=== PATIENT | female | born 1990 | race Caucasian/White ===

== ENCOUNTER 2020-12-30 12:01 | Observation (INO) | payer OTHER ==
[2020-12-30] MEDS ORDERED: SODIUM CHLORIDE 0.9% 1,000 ML IV STA (13:06)
[2020-12-30] MEDS ORDERED: KETOROLAC 15 MG/ML 1 ML VIAL IVP STA (13:06)
[2020-12-30 14:09] LABS: Basophils % (A) 0 %; Eosinophils % (A) 0 %; HCT 43.7 % (34.0-46.0); HGB 15.5 gm/dL (11.4-16.0); Lymphocytes # (A) 1.5 k/uL (1.0-4.8); Lymphocytes % (A) 11 %; MCH 30.6 pg (25.0-35.0); MCHC 35.4 g/dL (31.0-37.0); MCV 86.3 fL (80.0-100.0); Mean Platelet Volume 9.5; Monocytes # (A) 0.7 k/uL (0-1.0); Monocytes % (A) 5 %; Neutrophils % (A) 82 %; Platelet Count 209 k/uL (150-450); RBC 5.06 m/uL (3.80-5.40); RDW 12.4 % (11.5-15.5); WBC 13.4 k/uL (3.8-10.6)
[2020-12-30 14:16] LABS: Appearance,Urine Cloudy (Clear); Bacteria,Urine Occasional /hpf; Bilirubin,Urine 1+ (Negative); Blood,Urine Negative (Negative); Color,Urine Yellow; Glucose,Urine (UA) Negative (Negative); Ketones,Urine 1+ (Negative); Leukocyte Esterase,Urine Small (Negative); Mucus,Urine Many /hpf; Nitrite,Urine Negative (Negative); Protein,Urine 1+ (Negative); RBC,Urine 2 /hpf (0-5); Specific Gravity,Urine 1.031 (1.001-1.035); Squamous Epithelial Cell,Urine 31 /hpf (0-4); WBC,Urine 13 /hpf (0-5)
--- NOTE | 2020-12-30 14:23 | CT ---
EXAMINATION TYPE: CT abdomen pelvis w con DATE OF EXAM: 12/30/2020 COMPARISON: None INDICATION: Pelvic pain with nausea and diarrhea DLP: 2108.1 mGycm, Automated exposure control for dose reduction was used. CONTRAST: 100 mL of Isovue 300. Study performed without Oral Contrast TECHNIQUE: Axial images were obtained from above the diaphragm to the pubic rami in the axial plane a t 5 mm thick sections. Reconstructed images are reviewed on the computer in the coronal plane. FINDINGS: Limited CT sections are obtained the lung bases. The lung bases are clear. CT ABDOMEN: Liver: Normal Spleen: Normal Pancreas: Normal Adrenal glands: The adrenal glands are normal. Gallbladder: Normal Kidneys: No masses are evident. No hydronephrosis is present. No cysts are present. Delayed images were obtained through the kidneys, which remain unremarkable. Aorta: Normal Inferior vena cava: Normal. CT PELVIS: Fluid-filled small bowel loops and fluid filled colon is evident. Findings can be compatible with gas troenteritis. Ileus is considered within the differential. No suspicious changes for obstruction are evident. Follow up exams can be performed as clinically indicated. This study is performed without or al contrast. Appendix: Appendix dilatation is not identified. However, this right lower quadrant area has increase d inflammatory changes surrounding the appendix. Clinical correlation for early appendicitis is recom mended. Report was called to Dr. Cuevas by Dr. Lockhart by telephone 1420 hours 12/30/2020. The case wa s discussed. Urinary bladder: Decompressed with limited evaluation Genitourinary structures: Uterus appears normal. Adnexal regions are clear. Osseous structures: No suspicious lytic or sclerotic lesions. IMPRESSIONS: 1. Inflammatory changes surrounding the nondilated appendix. Correlate for early appendicitis. 2. Fluid-filled small bowel loops and colon. Correlate for gastroenteritis. Ileus could be considered .
[2020-12-30 14:27] LABS: ALT 22 U/L (4-34); AST 21 U/L (14-36); African American GFR (CKD) >90 (>60 ml/min/1.73 sqM); Albumin 4.3 g/dL (3.5-5.0); Alkaline Phosphatase 87 U/L (38-126); Anion Gap 9 mmol/L; Blood Urea Nitrogen 9 mg/dL (7-17); Calcium 9.4 mg/dL (8.4-10.2); Carbon Dioxide 23 mmol/L (22-30); Chloride 105 mmol/L (98-107); Glucose 96 mg/dL (74-99); Lipase 64 U/L (23-300); Non-African American GFR(CKD) >90 (>60 ml/min/1.73 sqM); Potassium 3.9 mmol/L (3.5-5.1); Sodium 137 mmol/L (137-145); Total Bilirubin 1.2 mg/dL (0.2-1.3); Total Protein 7.4 g/dL (6.3-8.2)
--- NOTE | 2020-12-30 14:29 | ED ---
Abdominal Pain HPI - General Chief Complaint: Abdominal Pain Stated Complaint: poss appendicitis Time Seen by Provider: 12/30/20 12:45 Source: patient Mode of arrival: ambulatory Limitations: no limitations - History of Present Illness Initial Comments: Patient is a 30-year-old female presenting to the emergency department from her PCPs office for right lower quadrant pain. Patient states she started having some mid abdominal pain a few days ago but states she does get this occasionally. Patient states last night the pain started to get worse and moved the lower and towards her right side. Patient states his pain is very sharp in nature, consistent and different than her normal abdominal pains. She denies any history of abdominal surgeries. She's been having normal bowel movements. She denies any fever or chills. She did see her PCP earlier today, urine was normal, no . She denies any chest pain or shortness of breath. She does admit to some nausea but no vomiting. She has no further complaints at this time. Upon arrival to the ER, she has tachycardia at 114, rest of vitals are normal. - Related Data Home Medications Medication Instructions Recorded Confirmed Bismuth Subsalicylate 524 mg PO Q4H PRN 12/30/20 12/30/20 [Pepto-Bismol] Allergies Allergy/AdvReac Type Severity Reaction Status Date / Time No Known Allergies Allergy Verified 12/30/20 13:48 Review of Systems ROS Statement: Those systems with pertinent positive or pertinent negative responses have been documented in the HPI. ROS Other: All systems not noted in ROS Statement are negative. Past Medical History Past Medical History: No Reported History Past Surgical History: No Surgical Hx Reported Smoking Status: Vaper Past Alcohol Use History: Occasional Past Drug Use History: None Reported General Exam - General Exam Comments Initial Comments: GENERAL: Patient is well-developed and well-nourished. Patient is nontoxic and in mild distress. HEAD: Atraumatic, normocephalic. EYES: Pupils equal round and reactive to light, extraocular movements intact, sclera anicteric, conjunctiva are normal. Eyelids were unremarkable. ENT: TMs normal, nares patent, oropharynx clear without exudates. Moist mucous membranes. NECK: Normal range of motion, supple without lymphadenopathy or JVD. LUNGS: Unlabored respirations. Breath sounds clear to auscultation bilaterally and equal. No wheezes rales or rhonchi. HEART: Regular rate and rhythm without murmurs, rubs or gallops. ABDOMEN: Soft, tender to palpation of the suprapubic, right lower quadrant, there is rebound tenderness and guarding present. normoactive bowel sounds. No masses appreciated. : Deferred MUSCULOSKELETAL: Normal extremities with adequate strength and normal range of motion, no pitting or edema. No clubbing or cyanosis. NEUROLOGICAL: Patient is alert and oriented x 3. Motor and sensory are also intact. Cranial nerves II through XII grossly intact. Symmetrical smile. Normal speech, normal gait. PSYCH: Normal mood, normal affect. SKIN: Warm, Dry, normal turgor, no rashes or lesions noted. Limitations: no limitations Course Vital Signs 12/30/20 12/30/20 12:14 14:46 Temperature 98.3 F Pulse Rate 114 H 103 H Respiratory 18 18 Rate Blood Pressure 119/81 132/86 O2 Sat by Pulse 98 Oximetry Medical Decision Making - Medical Decision Making Patient is a 30-year-old female here for right lower quadrant pain has been increasing over the past 2 days. Patient did see her PCP today who sent her in the ER to rule out appendicitis possibly ovarian cyst. Urine test today at his doctor's office was negative. No fevers, she did arrive subtly ta chycardia. It is fairly tender in the right lower quadrant, positive guarding. Recent labs showed a white count of 13.4, normal hemoglobin. Lactic acid is normal at 1.1, urine has 1+ ketones, little bit of bacteria but many's, cells. Urine hCG is not detected. CT of the abdomen and pelvis shows inflammatory changes around the nondilated appendix, concerning for early appendicitis. There are some fluid-filled small bowel loops of bowel, could be related to an ileus secondary to the appendicitis. She received Toradol, IV fluids, she has been resting comfortably. Patient has not had anything to eat since yesterday, she takes a few sips of water earlier this morning. Patient will be admitted for appendicitis. I did speak with Dr. Thomas and he did accept patient. We will start patient on Zosyn. He is discussed with Dr. Auguste. - Lab Data Result diagrams: 12/30/20 13:25 12/30/20 13:25 Lab Results 12/30/20 12/30/20 12/30/20 Range/Units 13:25 13:25 13:25 WBC 13.4 H (3.8-10.6) k/uL RBC 5.06 (3.80-5.40) m/uL Hgb 15.5 (11.4-16.0) gm/dL Hct 43.7 (34.0-46.0) % MCV 86.3 (80.0-100.0) fL MCH 30.6 (25.0-35.0) pg MCHC 35.4 (31.0-37.0) g/dL RDW 12.4 (11.5-15.5) % Plt Count 209 (150-450) k/uL MPV 9.5 Neutrophils % 82 % Lymphocytes % 11 % Monocytes % 5 % Eosinophils % 0 % Basophils % 0 % Neutrophils # 11.0 H (1.3-7.7) k/uL Lymphocytes # 1.5 (1.0-4.8) k/uL Monocytes # 0.7 (0-1.0) k/uL Eosinophils # 0.0 (0-0.7) k/uL Basophils # 0.0 (0-0.2) k/uL Sodium (137-145) mmol/L Potassium (3.5-5.1) mmol/L Chloride (98-107) mmol/L Carbon Dioxide (22-30) mmol/L Anion Gap mmol/L BUN (7-17) mg/dL Creatinine (0.52-1.04) mg/dL Est GFR (CKD-EPI)AfAm (>60 ml/min/1.73 sqM) Est GFR (CKD-EPI)NonAf (>60 ml/min/1.73 sqM) Glucose (74-99) mg/dL Plasma Lactic Acid Osvaldo (0.7-2.0) mmol/L Calcium (8.4-10.2) mg/dL Total Bilirubin (0.2-1.3) mg/dL AST (14-36) U/L ALT (4-34) U/L Alkaline Phosphatase (38-126) U/L Total Protein (6.3-8.2) g/dL Albumin (3.5-5.0) g/dL Lipase (23-300) U/L Urine Color Yellow Urine Appearance Cloudy H (Clear) Urine pH 6.0 (5.0-8.0) Ur Specific [place] 1.031 (1.001-1.035) Urine Protein 1+ H (Negative) Urine Glucose (UA) Negative (Negative) Urine Ketones 1+ H (Negative) Urine Blood Negative (Negative) Urine Nitrite Negative (Negative) Urine Bilirubin 1+ H (Negative) Urine Urobilinogen 2.0 (<2.0) mg/dL Ur Leukocyte Esterase Small H (Negative) Urine RBC 2 (0-5) /hpf Urine WBC 13 H (0-5) /hpf Ur Squamous Epith Cells 31 H (0-4) /hpf Urine Bacteria Occasional H (None) /hpf Urine Mucus Many H (None) /hpf Urine HCG, Qual Not Detected (Not Detectd) 12/30/20 12/30/20 Range/Units 13:25 13:25 WBC (3.8-10.6) k/uL RBC (3.80-5.40) m/uL Hgb (11.4-16.0) gm/dL Hct (34.0-46.0) % MCV (80.0-100.0) fL MCH (25.0-35.0) pg MCHC (31.0-37.0) g/dL RDW (11.5-15.5) % Plt Count (150-450) k/uL MPV Neutrophils % % Lymphocytes % % Monocytes % % Eosinophils % % Basophils % % Neutrophils # (1.3-7.7) k/uL Lymphocytes # (1.0-4.8) k/uL Monocytes # (0-1.0) k/uL Eosinophils # (0-0.7) k/uL Basophils # (0-0.2) k/uL Sodium 137 (137-145) mmol/L Potassium 3.9 (3.5-5.1) mmol/L Chloride 105 (98-107) mmol/L Carbon Dioxide 23 (22-30) mmol/L Anion Gap 9 mmol/L BUN 9 (7-17) mg/dL Creatinine 0.74 (0.52-1.04) mg/dL Est GFR (CKD-EPI)AfAm >90 (>60 ml/min/1.73 sqM) Est GFR (CKD-EPI)NonAf >90 (>60 ml/min/1.73 sqM) Glucose 96 (74-99) mg/dL Plasma Lactic Acid Osvaldo 1.1 (0.7-2.0) mmol/L Calcium 9.4 (8.4-10.2) mg/dL Total Bilirubin 1.2 (0.2-1.3) mg/dL AST 21 (14-36) U/L ALT 22 (4-34) U/L Alkaline Phosphatase 87 (38-126) U/L Total Protein 7.4 (6.3-8.2) g/dL Albumin 4.3 (3.5-5.0) g/dL Lipase 64 (23-300) U/L Urine Color Urine Appearance (Clear) Urine pH (5.0-8.0) Ur Specific [place] (1.001-1.035) Urine Protein (Negative) Urine Glucose (UA) (Negative) Urine Ketones (Negative) Urine Blood (Negative) Urine Nitrite (Negative) Urine Bilirubin (Negative) Urine Urobilinogen (<2.0) mg/dL Ur Leukocyte Esterase (Negative) Urine RBC (0-5) /hpf Urine WBC (0-5) /hpf Ur Squamous Epith Cells (0-4) /hpf Urine Bacteria (None) /hpf Urine Mucus (None) /hpf Urine HCG, Qual (Not Detectd) Disposition Clinical Impression: Acute appendicitis Disposition: ADMITTED IP TO THIS [facility] Condition: Stable Is patient prescribed a controlled substance at d/c from ED?: No Referrals: Rigo Barnhart MD [Primary Care Provider] - 1-2 days Decision Date: 12/30/20 Decision Time: 14:58
[2020-12-30] MEDS ORDERED: PIPERACILLIN-TAZOBACTAM 3.375 GM in SODIUM CHLORIDE 0.9% 100 ML IVPB STA (14:53)
[2020-12-30] MEDS ORDERED: NALOXONE 0.4 MG/ML 1 ML VIAL IV PRN (14:58)
[2020-12-30] MEDS ORDERED: MORPHINE SULFATE 4 MG/ML SYRINGE IV PRN (14:58)
[2020-12-30] MEDS ORDERED: KETOROLAC 15 MG/ML 1 ML VIAL IVP PRN (14:58)
[2020-12-30] MEDS ORDERED: ONDANSETRON 4 MG/2 ML VIAL IVP PRN (14:58)
[2020-12-30] MEDS: SODIUM CHLORIDE 0.9% 1,000 ML IV SCH (15:10)
[2020-12-30] MEDS ORDERED: ROCURONIUM 10 MG/ML (5 ML VIAL) IV ONE (18:50)
[2020-12-30] MEDS ORDERED: GLYCOPYRROLATE 0.2 MG/ML 2 ML VIAL ONE (18:50)
[2020-12-30] MEDS ORDERED: DEXAMETHASONE SOD PHOSPHATE 10 MG/ML 1 ML VIAL ONE (18:50)
[2020-12-30] MEDS ORDERED: MIDAZOLAM 2 MG/2 ML VIAL ONE (18:50)
[2020-12-30] MEDS ORDERED: HYDROmorphone (PF) 1 MG/ML ONE (18:50)
[2020-12-30] MEDS ORDERED: LIDOCAINE 1% INJ 10MG/ML (20 ML MDV) ONE (18:50)
[2020-12-30] MEDS ORDERED: SUCCINYLCHOLINE CHLORIDE 100 MG/5 ML SYR IV ONE (18:50)
[2020-12-30] MEDS ORDERED: fentaNYL (PF) 50 MCG/ML 2 ML AMP ONE (18:50)
[2020-12-30] MEDS ORDERED: PROPOFOL 10 MG/ML 20 ML VIAL IV ONE (18:50)
[2020-12-30] MEDS ORDERED: ONDANSETRON 4 MG/2 ML VIAL ONE (18:50)
[2020-12-30] MEDS ORDERED: NEOSTIGMINE 1 MG/ML 10 ML VIAL ONE (18:50)
[2020-12-30] MEDS ORDERED: HEPARIN SODIUM,PORCINE 5,000 UNIT/ML 1 ML VIAL SQ STA (18:54)
[2020-12-30] MEDS ORDERED: IV FLUID CONTINUATION 1,000 ML IV ONE (18:54)
--- NOTE | 2020-12-30 18:54 | P.GSHP ---
History of Present Illness H&P Date: 12/30/20 30-year-old female presents to the emergency department with complaints of abdominal pain that started approximately 1 day ago. She states that the pain was initially periumbilical and then migrated to the right lower quadrant. She also complains of nausea and lack of appetite. She mentions that she did have some loose stool today with no bowel movements yesterday. She denies any fevers, chills, chest pain or shortness of breath. On workup, patient was found to have a mild leukocytosis. CT of the abdomen and pelvis was performed that was concerning for appendicitis. She denies having pain like this previously. She denies any previous surgical history. - Review of Systems All systems: negative Past Medical History Past Medical History: No Reported History Past Surgical History: No Surgical Hx Reported Smoking Status: Vaper Past Alcohol Use History: Occasional Past Drug Use History: None Reported Medications and Allergies Home Medications Medication Instructions Recorded Confirmed Type Bismuth Subsalicylate 524 mg PO Q4H PRN 12/30/20 12/30/20 History [Pepto-Bismol] Allergies Allergy/AdvReac Type Severity Reaction Status Date / Time No Known Allergies Allergy Verified 12/30/20 13:48 Surgical - Exam Osteopathic Statement: *. No significant issues noted on an osteopathic structural exam other than those noted in the History and Physical/Consult. Vital Signs Temp Pulse Resp BP 98.3 F 114 H 18 119/81 12/30/20 12:14 12/30/20 12:14 12/30/20 12:14 12/30/20 12:14 - General well nourished, no distress - Eyes PERRL - ENT no hearing loss - Neck trachea midline - Respiratory normal respiratory effort - Abdomen Soft, tender to palpation in right lower quadrant, nondistended, no rebound, no guarding - Psychiatric oriented to time, oriented to person, oriented to place Results - Labs 12/30/20 13:25 12/30/20 13:25 Abnormal Lab Results - Last 24 Hours (Table) 12/30/20 12/30/20 Range/Units 13:25 13:25 WBC 13.4 H (3.8-10.6) k/uL Neutrophils # 11.0 H (1.3-7.7) k/uL Urine Appearance Cloudy H (Clear) Urine Protein 1+ H (Negative) Urine Ketones 1+ H (Negative) Urine Bilirubin 1+ H (Negative) Ur Leukocyte Esterase Small H (Negative) Urine WBC 13 H (0-5) /hpf Ur Squamous Epith Cells 31 H (0-4) /hpf Urine Bacteria Occasional H (None) /hpf Urine Mucus Many H (None) /hpf Diabetes panel 12/30/20 Range/Units 13:25 Sodium 137 (137-145) mmol/L Potassium 3.9 (3.5-5.1) mmol/L Chloride 105 (98-107) mmol/L Carbon Dioxide 23 (22-30) mmol/L BUN 9 (7-17) mg/dL Creatinine 0.74 (0.52-1.04) mg/dL Glucose 96 (74-99) mg/dL Calcium 9.4 (8.4-10.2) mg/dL AST 21 (14-36) U/L ALT 22 (4-34) U/L Alkaline Phosphatase 87 (38-126) U/L Total Protein 7.4 (6.3-8.2) g/dL Albumin 4.3 (3.5-5.0) g/dL Calcium panel 12/30/20 Range/Units 13:25 Calcium 9.4 (8.4-10.2) mg/dL Albumin 4.3 (3.5-5.0) g/dL Pituitary panel 12/30/20 Range/Units 13:25 Sodium 137 (137-145) mmol/L Potassium 3.9 (3.5-5.1) mmol/L Chloride 105 (98-107) mmol/L Carbon Dioxide 23 (22-30) mmol/L BUN 9 (7-17) mg/dL Creatinine 0.74 (0.52-1.04) mg/dL Glucose 96 (74-99) mg/dL Calcium 9.4 (8.4-10.2) mg/dL Adrenal panel 12/30/20 Range/Units 13:25 Sodium 137 (137-145) mmol/L Potassium 3.9 (3.5-5.1) mmol/L Chloride 105 (98-107) mmol/L Carbon Dioxide 23 (22-30) mmol/L BUN 9 (7-17) mg/dL Creatinine 0.74 (0.52-1.04) mg/dL Glucose 96 (74-99) mg/dL Calcium 9.4 (8.4-10.2) mg/dL Total Bilirubin 1.2 (0.2-1.3) mg/dL AST 21 (14-36) U/L ALT 22 (4-34) U/L Alkaline Phosphatase 87 (38-126) U/L Total Protein 7.4 (6.3-8.2) g/dL Albumin 4.3 (3.5-5.0) g/dL - Imaging CT scan - abdomen: report reviewed, image reviewed CT scan - pelvis: report reviewed, image reviewed Assessment and Plan Plan: 30-year-old female with acute appendicitis. Plan is for laparoscopic appendectomy, possible open. Patient was given IV antibiotics in the emergency department. Further recommendations are to be made after the procedure. She will receive preoperative VT prophylaxis.
[2020-12-30] MEDS ORDERED: BUPIVACAIN-EPI 0.5%-1:200,000 30 ML VIAL SQ ONE ×2 (19:16→19:41)
[2020-12-30] MEDS ORDERED: MORPHINE SULFATE 2 MG/ML SYRINGE IV PRN (19:50)
[2020-12-30] MEDS ORDERED: HYDROcodone/APAP 5-325MG 1 EACH TAB PO PRN (19:51)
--- NOTE | 2020-12-30 19:55 | P.OP ---
Date of Procedure: 12/30/20 Preoperative Diagnosis: Acute appendicitis Postoperative Diagnosis: Acute appendicitis Procedure(s) Performed: Laparoscopic appendectomy Anesthesia: ARLET Surgeon: Andrés Thomas Pathology: other (Appendix) Condition: stable Disposition: floor Indications for Procedure: 30-year-old female presents to the emergency department with complaints of abdominal pain. On workup, she was found to have acute appendicitis. Secondary to this, vision was started on IV antibiotics with plan for laparoscopic appen dectomy. Risks, benefits and alternatives were provided to the patient. She did provide consent prior to attending the operating suite. Operative Findings: Edematous and inflamed appendix with purulent exudates noted Description of Procedure: The patient was brought to the operating suite and placed in supine position on the operating table. Sedation was provided by anesthesia patient underwent endotracheal intubation. Patient was then prepped and draped in regular sterile fashion. Infraumbilical incision was made and dissection was carried to the fascia. The fascia was incised and a 12 mm port was placed. Pneumoperitoneum was then achieved. 2 additional 5 mm ports were then placed. One was placed in the suprapubic region and the other was placed in left lower quadrant. The patient was then positioned appropriately. The small bowel was noted to be adhered to the cecum and was grasped and retracted towards the left side of the abdomen. Immediate thrill and exudate was noted and the appendix was clearly visualized. The appendix was then peeled from the small bowel and mesentery. On examination, the base of the appendix was clearly visualized. A window was then created between the appendix and the mesoappendix. LigaSure device was used to dissect the appendix from the mesoappendix area hemostasis was maintained. Once the base of the appendix was cleared, a stapler device was used to resect the appendix at the base. The appendix was then placed in an Endo Catch bag and removed from the abdomen. Copious muss irrigation was then placed in the right lower quadrant and suctioned. The pelvis was also suctioned as it did contain some turbid fluid. The staple line was examined with no evidence of further bleeding. The 12 mm port site was then closed under direct visualization using an 0 Vicryl suture and a Andrea-Lexx device. Pneumoperitoneum was then released. All ports removed from the abdomen. All skin incisions were closed with 4-0 Vicryl subcuticular suture. The patient was awakened in the operating suite and taken to post anesthesia care unit in stable condition.
[2020-12-31] MEDS: HEPARIN SODIUM,PORCINE 5,000 UNIT/ML 1 ML VIAL SQ SCH ×2 (00:23→15:12)
[2020-12-31] MEDS: PIPERACILLIN-TAZOBACTAM 3.375 GM in SODIUM CHLORIDE 0.9% 100 ML IVPB SCH ×2 (00:23→07:56)
[2020-12-31] MEDS: KETOROLAC 15 MG/ML 1 ML VIAL IVP SCH ×3 (00:24→12:03)
[2020-12-31] MEDS: SODIUM CHLORIDE 0.9% 1,000 ML IV SCH (06:06)
[2020-12-31 07:12] LABS: Basophils % (A) 0 %; Eosinophils % (A) 0 %; HCT 42.1 % (34.0-46.0); HGB 14.3 gm/dL (11.4-16.0); Lymphocytes # (A) 0.7 k/uL (1.0-4.8); Lymphocytes % (A) 7 %; MCH 29.9 pg (25.0-35.0); MCV 87.9 fL (80.0-100.0); Mean Platelet Volume 9.3; Monocytes # (A) 0.3 k/uL (0-1.0); Monocytes % (A) 4 %; Neutrophils # (A) 8.3 k/uL (1.3-7.7); Neutrophils % (A) 89 %; Platelet Count 190 k/uL (150-450); RDW 12.3 % (11.5-15.5); WBC 9.3 k/uL (3.8-10.6)
[2020-12-31 07:28] LABS: ALT 19 U/L (4-34); AST 25 U/L (14-36); African American GFR (CKD) >90 (>60 ml/min/1.73 sqM); Albumin 3.4 g/dL (3.5-5.0); Alkaline Phosphatase 81 U/L (38-126); Anion Gap 10 mmol/L; Blood Urea Nitrogen 13 mg/dL (7-17); Calcium 8.7 mg/dL (8.4-10.2); Carbon Dioxide 17 mmol/L (22-30); Chloride 110 mmol/L (98-107); Glucose 121 mg/dL (74-99); Non-African American GFR(CKD) >90 (>60 ml/min/1.73 sqM); Potassium 4.2 mmol/L (3.5-5.1); Sodium 137 mmol/L (137-145); Total Bilirubin 1.4 mg/dL (0.2-1.3); Total Protein 6.4 g/dL (6.3-8.2)
--- NOTE | 2020-12-31 10:44 | P.DS ---
Providers Date of admission: 12/30/20 15:32 Attending physician: Andrés Thomas DO Primary care physician: Rigo [facility] Course: 30-year-old female presented to the emergency department with complaints of abdominal pain in the right lower quadrant. This had migrated from the umbilicus. On workup, patient was found to have acute appendicitis. She was taken to the operating suite and a laparoscopic appendectomy was performed. Postoperatively, patient was sent to the medical surgical floor and did improve. Leukocytosis resolved. Patient was on IV antibiotics. Based on findings during the surgery, recommendation is made for oral antibiotics as an outpatient. Her diet was advanced and tolerated. Patient is surgically stable for discharge. Instructions were provided to the patient on all questions were answered prior to discharge. Procedures: Laparoscopic appendectomy Patient Condition at Discharge: Stable Plan - Discharge Summary Discharge Rx Participant: Yes New Discharge Prescriptions: New HYDROcodone/APAP 5-325MG [[place] 5-325] 1 each PO Q6HR PRN #10 tab PRN Reason: Pain Amoxicillin/Potassium Clav [Augmentin 500-125 Tablet] 1 tab PO Q12HR 7 Days #14 tab Discontinued Bismuth Subsalicylate [Pepto-Bismol] 524 mg PO Q4H PRN PRN Reason: Gi Upset Discharge Medication List Amoxicillin/Potassium Clav [Augmentin 500-125 Tablet] 1 tab PO Q12HR 7 Days #14 tab 12/31/20 [Rx] HYDROcodone/APAP 5-325MG [[place] 5-325] 1 each PO Q6HR PRN #10 tab 12/31/20 [Rx] Follow up Appointment(s)/Referral(s): Rigo Barnhart MD [Primary Care Provider] - 1-2 days Andrés Thomas DO [Doctor of Osteopathic Medicine] - 2 Weeks Patient Instructions/Handouts: Laparoscopic Appendectomy (DC) Activity/Diet/Wound Care/Special Instructions: No lifting greater than 5 pounds for 1 week Take antibiotics as prescribed Pain medication as necessary, if taking narcotic pain medication, I do recommend stool softeners Discharge Disposition: HOME SELF-CARE
[2020-12-31 14:29] VITALS: BP 117/75; PULSE 83; RESP 18; TEMP 98.3
== END 2020-12-31 15:30 | disposition home or self-care (01) ==
LOC: EC 12:01 → 4SSUR 15:32 → 6PED 18:31
PROVIDERS: ADMIT Surgery; ATTEND Surgery
DX: K35.80 Unspecified acute appendicitis (principal); R11.0 Nausea; R63.0 Anorexia; R19.7 Diarrhea, unspecified; F17.290 Nicotine dependence, other tobacco product, uncomplicated; Z20.822 Contact with and (suspected) exposure to COVID-19
CPT/HCPCS: 96361; 96374; 99285; 36415; 88304; 80053 ×2; 83605; 83690; 85025 ×2; 81001; 81025; 87086; 87635; 74177; 44970; G0378 ×3; J2543 ×2; J2250; J1644; J1100; J2710; J2405; J2001; J3010; J1170; J1885 ×2; J0330; J2704; Q9967

== ENCOUNTER → 2022-01-04 | Outpatient (CLI) | payer BC ==
--- NOTE | 2022-01-05 06:26 | US ---
EXAMINATION TYPE: US transvaginal DATE OF EXAM: 01/04/2022 COMPARISON: CT abdomen and pelvis 5 days earlier CLINICAL HISTORY: N92.0 FREQUENT MENSTRUATION WITH REGULAR CYCLES. possible fibroid visualized when zac mcintosh had appendectomy 1 year ago TECHNIQUE: Transvaginal (TV). Date of LMP: 12/10/21 EXAM MEASUREMENTS: Uterus: 8.2 x 3.9 x 4.0 cm Endometrial Stripe: 1.0 cm Right Ovary: 4.8 x 2.9 x 3.7 cm Left Ovary: 2.9 x 1.7 x 1.7 cm 1. Uterus: Anteverted heterogenous, no distinct fibroid visualized at this time 2. Endometrium: appears wnl for menstrual stage 3. Right Ovary: cystic areas noted, largest = 3.2 x 2.9 x 2.3cm 4. Left Ovary: follicles noted 5. Bilateral Adnexa: wnl 6. Posterior cul-de-sac: wnl Heterogeneous anteverted uterus. Endometrial stripe measures 10 mm which is within normal limits for secretory phase of menstrual cycle. No free fluid in pelvic cul-de-sac. Both ovaries are seen, right is larger in size with larger prominent follicles or simple small ovaria n cysts. Findings correlate with recent CT. IMPRESSION: Asymmetric increased right ovarian size with small simple thin-walled cysts incidentally noted otherwise unremarkable study.
== END | disposition home or self-care (01) ==
LOC: RADUSWWP 16:53
PROVIDERS: ATTEND Family Medicine
DX: N83.292 Other ovarian cyst, left side (principal); N83.291 Other ovarian cyst, right side; N83.8 Other noninflammatory disorders of ovary, fallopian tube and broad ligament
CPT/HCPCS: 76830